=== PATIENT | male | born 1965 | race Two or more races ===

== ENCOUNTER 2018-11-08 09:29 | Day surgery (SDC) | payer OTHER ==
[~2018-11-08] VITALS: Ht 165.1 cm; Wt 69.4 kg
[2018-11-08] VITALS (10 sets, daily range): BP systolic 109–135; BP diastolic 69–84; PULSE 70–86; RESP 11–16; Ht 165.1 cm; Wt 69.4 kg
--- NOTE | 2018-11-08 06:31 | PREOPHP ---
DATE OF ADMISSION: 11/08/2018 HISTORY OF PRESENT ILLNESS: This 53-year-old patient is admitted for elective cataract surgery of th e left eye. The patient has had advanced loss of vision in both eyes for the past 1 to 2 years witho ut prior history of eye disease or injury. SYSTEMIC HISTORY: Positive for hypertension, GERD and allergies. CURRENT MEDICATIONS: Include: 1. Ferrous sulfate. 2. Vitamin D3. 3. Omeprazole. 4. Benazepril. 5. Sertraline. ALLERGIES: THERE ARE NO KNOWN ALLERGIES. PHYSICAL EXAMINATION: Visual acuity with correction is 20/200 in the right eye and finger counting v ision in the left eye. Slit lamp examination reveals advanced nuclear sclerotic creating a mature ca taract present in both eyes. Applanation tonometry is 18 mmHg in the right eye and 17 mmHg in the le ft eye. Examination of the retina is obscured by the advanced cataract. DIAGNOSIS: Mature cataract, both eyes. PLAN: Cataract extraction with lens implant, left eye. The risks and alternatives to the surgery sarkar ve been discussed with the patient as well as the increased risk related to the advanced nature of th e cataracts in both eyes as well as the potential for limitation of visual acuity due to other factor s other than the cataract due to the inability to visualize the retina. The patient understands all of these and agrees to proceed with surgery in hopes of improving visual acuity leading to greater ab ility to perform activities of daily living. Dictated By: ELIU HERNANDEZ/HUNTER Conf#: [id number] DID#: [id number]
[~2018-11-08 09:29] MED LIST: CYCLOPENTOLATE/PHENYLEPH 2 ML OPH OPER SCH; DICLOFENAC 0.1% 2.5 ML OPH OPER SCH; MOXIFLOXACIN 0.5% 3 ML OPH OPER SCH; SOD CHLORIDE 0.9% 1,000 ML IV SCH; TROPICAMIDE 1% 15 ML OPH OPER SCH
[2018-11-08] MEDS ORDERED: CEFAZOLIN 1 GM INJ ONE (09:39)
[2018-11-08] MEDS ORDERED: NA HYALURONATE/CHONDROITIN 0.5 ML SYG ONE (09:39)
[2018-11-08] MEDS ORDERED: DEXAMETHASONE 4 MG/ML 1 ML INJ ONE (09:39)
[2018-11-08] MEDS ORDERED: LIDOCAINE 4% (MPF) 5 ML INJ ONE (09:39)
[2018-11-08] MEDS ORDERED: CARBACHOL 0.01% 1.5 ML OPH INJ ONE (09:39)
[2018-11-08] MEDS ORDERED: TETRACAINE 0.5% 4 ML OPH ONE (09:39)
--- NOTE | 2018-11-08 09:46 | PREAC ---
Date/Time of Note Date/Time of Note DATE: 11/08/18 TIME: 09:44 Anesthesia Eval and Record Evaluation Time Pre-Procedure Interview DATE: 11/08/18 TIME: 09:44 Age 53 Sex male NPO: 8 hrs Preoperative diagnosis left eye cataract Planned procedure left eye CEIOL Past Medical History Past Medical History: Includes Cardio: HTN (per h&p, no rx meds for HTN) Hepatic: Alcohol abuse (last drank 3 days ago per patient report ), Other (elevated LFTs (alcoholism?)) Psych: Depression, Anxiety Surgery & Anesthesia Issues No known issue Meds Anticoagulation: No Beta Fredi within 24 hr: No Reason Beta Fredi not given: Pt. not on B-Fredi Current Medications Diclofenac Sodium (Voltaren 0.1%) 1 drop Q5 MIN X 3 OPER ; Start 11/08/18 at 08:30; Stop 11/08/18 at 16:00 Tropicamide (Mydriacyl 1%) 1 drop Q5 MIN X3 OPER ; Start 11/08/18 at 08:30; Stop 11/08/18 at 16:00 Moxifloxacin HCl (Vigamox) 1 drop Q5 MIN X 3 OPER ; Start 11/08/18 at 08:30; Stop 11/08/18 at 16:00 Cyclopentolate/ Phenylephrine (Cyclomydril Oph 2 ml) 1 drop Q5 MIN X 3 OPER ; Start 11/08/18 at 08:30; Stop 11/08/18 at 16:00 Sodium Chloride 1,000 ml @ 25 mls/hr Q24H IV ; Start 11/08/18 at 08:30; Stop 11/08/18 at 16:00 Meds reviewed: Yes Allergies Coded Allergies: No Known Allergies (Unverified Allergy, Unknown, 11/07/18) Allergies Reviewed: Yes Labs/Studies Labs Reviewed: Reviewed by anesthesiologist test: N/A Studies: ECG (BBB ) Pre-procedure Exam Airway: Adequate mouth opening, Adequate thyromental dist Mallampati: Mallampati II Teeth: Abnormal (poor dentition, missing several teeth ) Lung: Normal Heart: Normal ASA Physical Status ASA physical status: 2 Emergency: None Planned Anesthetic General/MAC: MAC Planned Pain Management Parenteral pain med, Local by surgeon Pre-operative Attestations Prior to commencing anesthesia and surgery, the patient was re-evaluated, there was verification of: *The patient's identity *The results of appropriate recent lab work and preoperative vital signs *The above evaluation not changing prior to induction *Anesthetic plan, risk benefits, alternative and complications discussed with patient/family; questions answered; patient/family understands, accepts and wishes to proceed. JEROD CATALAN Nov 08, 2018 09:46
[2018-11-08] MEDS ORDERED: PROPOFOL 20 ML ONE (10:05)
[2018-11-08] MEDS ORDERED: FENTAnyl 50 MCG/ML VIAL ONE (10:05)
[2018-11-08] MEDS ORDERED: MIDAZOLAM 1 MG/ML 2 ML INJ ONE (10:05)
[2018-11-08] MEDS ORDERED: FER325 ORAL (10:08)
[2018-11-08] MEDS ORDERED: CALC1TAB98 ORAL (10:08)
[2018-11-08] MEDS ORDERED: OXYCODONE/ACETAMINOPHEN (5/325) TAB PO PRN ×2 (10:30)
[2018-11-08] MEDS ORDERED: FENTAnyl 50 MCG/ML VIAL IV PRN ×3 (10:30)
[2018-11-08] MEDS ORDERED: ONDANSETRON 4 MG INJ IV PRN (10:30)
--- NOTE | 2018-11-08 11:57 | SIPON ---
Date/Time of Note Date/Time of Note DATE: 11/08/18 TIME: 11:56 Operative Report Preoperative Diagnosis mature cataract os Postoperative Diagnosis same Operation/Procedure Performed cataract extraction with lens implant os Surgeon eliu orozco social media assistant none Anesthesia: MAC Estimated blood loss: none Transfusion Required none Specimen none Grafts/Implants posterior chamber lens implant Complications none ELIU OROZCO MD Nov 08, 2018 11:57
--- NOTE | 2018-11-08 13:08 | PAC ---
Date/Time of Note Date/Time of Note DATE: 11/08/18 TIME: 13:08 Post-Anesthesia Notes Post-Anesthesia Note Last documented vital signs Vital Signs Date Temp Pulse Resp B/P (MAP) Pulse Ox O2 O2 Flow FiO2 Time Delivery Rate 11/08/18 72 11 109/75 92 Room Air 11:43 (86) 11/08/18 98.1 11:36 Activity: WNL Respiratory function: WNL Cardiovascular function: WNL Mental status: Baseline Pain reasonably controlled: Yes Hydration appropriate: Yes Nausea/Vomiting absent: Yes JEROD CATALAN Nov 08, 2018 13:08
--- NOTE | 2018-11-08 13:32 | OPR ---
DATE OF OPERATION: 11/08/2018 PREOPERATIVE DIAGNOSIS: Mature cataract, left eye. POSTOPERATIVE DIAGNOSIS: Mature cataract, left eye. OPERATION PERFORMED: Cataract extraction with lens implant, left eye. SURGEON: Eliu Simmons MD ANESTHESIA: Satnam Jonas CRNA. OPERATION: Phacoemulsification with posterior chamber intraocular lens implant, left eye. PROCEDURE: The patient was brought to the operating room and placed on the table with an IV in place and the patient attached to an delicatessen department manager. Oxygen was given via face mask. After some intravenous sedation was administered, local anesthesia was given using Xylocaine 2% with epinephrine, mixed with Marcaine 0.5%. This was given in a lid block and retrobulbar injection. The p atient was then prepped and draped in the usual sterile manner. A wire lid speculum was inserted between the lids of the left eye. A Superblade was used to enter the anterior chamber at the corneoscleral limbus at the 10:30 o'clock position. A separate incision was made using a 3.0-mm keratome which entered the corneoscleral junction at the 12 o'clock position. Thr ough this 3-mm opening, an irrigating cystotome was introduced into the anterior chamber. The chamber was filled with Viscoat and an anterior capsulotomy was performed. Balanced salt solution was then u sed for hydrodissection of the lens. A phacoemulsification handpiece was then brought into the field and introduced into the anterior chamber. The lens nucleus was emulsified using a deep groove and cr acking the nucleus into quadrants. Following this, each quadrant was aspirated and emulsified at the pupillary margin. Due to the mature nature of the cataract, an excessive amount of time of ultrasound power was used, measuring just under 5 minutes of ultrasound. Please note that there was no lens cortical material and therefore we proceeded directly to insert th e posterior chamber intraocular lens, which was Bausch and Lomb Model LI61AO measuring 21.5 diopters. After this was completed, the irrigation/aspiration handpiece was brought to the field, introduced in to the posterior chamber, and the lens cortical material was removed. When this was completed, additi onal Viscoat was injected into the anterior and posterior chambers. After the leading haptic was int roduced into the capsular bag and the lens optic was present in the center of the eye, the injector w as removed and the trailing haptic was grasped with non-toothed forceps and introduced into the capsu lar fold superiorly. A Sinskey hook was then used to rotate the intraocular lens so that the lips wer e oriented in the horizontal meridian. One 10-0 nylon suture was placed across the wound. Prior to tying, the irrigation/aspiration handpiece was reintroduced into the anterior chamber to rem ove the Viscoat. Miochol was instilled to constrict the pupil, and then the 10-0 nylon suture was tie d. The ends were cut short and then the knot was buried. Then, 0.5 mL of dexamethasone and 0.5 mL of Ancef were injected into the sub-Tenon space in the infer ior fornix. Ciloxan drops were then placed on the surface of the eye. The speculum was removed and a patch was applied. The patient then left the operating room in satisfactory condition. Dictated By: ELIU HERNANDEZ/HUNTER Conf#: [id number] DID#: [id number]
== END 2018-11-08 12:35 | disposition home or self-care (01) ==
LOC: SDS 09:29
PROVIDERS: ATTEND Ophthalmology
DX: H26.8 Other specified cataract (principal); I10 Essential (primary) hypertension
CPT/HCPCS: 66984; J0690; J1100; J2250; J3010; V2632; Z7512; Z7610

== ENCOUNTER 2018-12-27 06:41 | Day surgery (SDC) | payer OTHER ==
--- NOTE | 2018-12-23 08:50 | PREOPHP ---
DATE OF ADMISSION: 12/27/2018 HISTORY OF PRESENT ILLNESS: This 53-year-old gentleman is admitted for elective cataract surgery of the right eye. The patient has previously had decreased vision in both eyes for the past 1 to 2 year s. He has undergone cataract surgery on the left eye 6 weeks ago with excellent visual recovery. Th e patient's systemic history is positive for hypertension, gastroesophageal reflux disease and allerg ies. CURRENT MEDICATIONS: 1. Ferrous sulfate. 2. Vitamin D3. 3. Omeprazole. 4. Benazepril. 5. Sertraline. ALLERGIES: THERE ARE NO KNOWN ALLERGIES. PHYSICAL EXAMINATION: The visual acuity with best correction is 20/200 in the right eye and 20/50 in the left eye. Slit lamp examination reveals an advanced nuclear sclerotic cataract in the right eye . The left eye has a posterior chamber intraocular lens in appropriate position. Applanation tonome try is 17 mmHg in the right eye and 12 mmHg in the left eye. Examination of the retina appears withi n normal limits with no evidence of any macular changes. DIAGNOSIS: Advanced nuclear sclerotic cataract, right eye. PLAN: Cataract extraction with lens implant, right eye. The risks and alternatives to the surgery a s well as the potential benefits of improved ability to function with improved visual acuity have bee n discussed with the patient and he has agreed to proceed with surgery. Dictated By: ELIU OROZCO MD BM/NTS Conf#: [id number] DID#: [id number] CC: ELIU OROZCO MD;*EndCC*
[~2018-12-27] VITALS: Ht 160 cm; Wt 69.4 kg
[2018-12-27] VITALS (8 sets, daily range): BP systolic 123–150; BP diastolic 80–97; PULSE 66–102; RESP 10–24; Ht 160 cm; Wt 69.4 kg
[~2018-12-27 06:41] MED LIST changes: +CALC1TAB98 ORAL; -CYCLOPENTOLATE/PHENYLEPH 2 ML OPH OPER SCH; -DICLOFENAC 0.1% 2.5 ML OPH OPER SCH; +FER325 ORAL; -MOXIFLOXACIN 0.5% 3 ML OPH OPER SCH; -SOD CHLORIDE 0.9% 1,000 ML IV SCH; -TROPICAMIDE 1% 15 ML OPH OPER SCH
[2018-12-27] MEDS ORDERED: CYCLOPENTOLATE/PHENYLEPH 2 ML OPH OPER SCH (07:00)
[2018-12-27] MEDS ORDERED: SOD CHLORIDE 0.9% 1,000 ML IV SCH (07:00)
[2018-12-27] MEDS ORDERED: TROPICAMIDE 1% 15 ML OPH OPER SCH (07:00)
[2018-12-27] MEDS ORDERED: DICLOFENAC 0.1% 2.5 ML OPH OPER SCH (07:00)
[2018-12-27] MEDS ORDERED: MOXIFLOXACIN 0.5% 3 ML OPH OPER SCH (07:00)
[2018-12-27] MEDS ORDERED: LIDOCAINE 2% (SDV) 5 ML INJ ONE (09:00)
[2018-12-27] MEDS ORDERED: PROPOFOL 200 MG INJ ONE (09:00)
[2018-12-27] MEDS ORDERED: LIDOCAINE 4% (MPF) 5 ML INJ ONE (09:16)
[2018-12-27] MEDS ORDERED: CEFAZOLIN 1 GM INJ ONE (09:16)
[2018-12-27] MEDS ORDERED: NA HYALURONATE/CHONDROITIN 0.5 ML SYG ONE (09:16)
[2018-12-27] MEDS ORDERED: DEXAMETHASONE 4 MG/ML 1 ML INJ ONE (09:16)
[2018-12-27] MEDS ORDERED: CARBACHOL 0.01% 1.5 ML OPH INJ ONE (09:16)
--- NOTE | 2018-12-27 09:24 | PREAC ---
Date/Time of Note Date/Time of Note DATE: 12/27/18 TIME: 09:23 Anesthesia Eval and Record Evaluation Time Pre-Procedure Interview DATE: 12/27/18 TIME: 09:23 Age 53 Sex male NPO: 8 hrs Preoperative diagnosis R eye cataract Planned procedure R eye cataract extraction Past Medical History Past Medical History: Includes Heme: Anemia Surgery & Anesthesia Issues No known issue Meds Anticoagulation: No Beta Fredi within 24 hr: No Reason Beta Fredi not given: Pt. not on B-Fredi Reported Medications Calcium Carbonate/Vitamin D3 (Calcium 600 + Vit D 200 Tablet) 1 Each Tablet, 1 TAB ORAL BID 11/08/18 Ferrous Sulfate* (Ferrous Sulfate*) 325 Mg Tabec, 1 TAB ORAL DAILY 11/08/18 Current Medications Diclofenac Sodium (Voltaren 0.1%) 1 drop Q5 MIN X 3 OPER Last administered on 12/27/18at 07:38; Admin Dose 1 DROP; Start 12/27/18 at 07:00 Tropicamide (Mydriacyl 1%) 1 drop Q5 MIN X3 OPER Last administered on 12/27/18at 07:38; Admin Dose 1 DROP; Start 12/27/18 at 07:00 Moxifloxacin HCl (Vigamox) 1 drop Q5 MIN X 3 OPER Last administered on 12/27/18at 07:39; Admin Dose 1 DROP; Start 12/27/18 at 07:00 Cyclopentolate/ Phenylephrine (Cyclomydril Oph 2 ml) 1 drop Q5 MIN X 3 OPER Last administered on 12/27/18at 07:51; Admin Dose 1 DROP; Start 12/27/18 at 07:00 Sodium Chloride 1,000 ml @ 25 mls/hr Q24H IV ; Start 12/27/18 at 07:00 Meds reviewed: Yes Allergies Coded Allergies: No Known Allergies (Unverified Allergy, Unknown, 12/27/18) Allergies Reviewed: Yes Labs/Studies Labs Reviewed: Reviewed by anesthesiologist Result Diagram: 12/27/18740 Laboratory Tests 12/27/18 07:41 test: N/A Pre-procedure Exam Last vitals Vital Signs Date Temp Pulse Resp B/P (MAP) Pulse Ox O2 O2 Flow FiO2 Time Delivery Rate 12/27/18 97.6 66 16 138/85 97 Room Air 08:03 (102) Airway: Adequate mouth opening, Adequate thyromental dist Mallampati: Mallampati II Teeth: Normal Lung: Normal Heart: Normal ASA Physical Status ASA physical status: 2 Emergency: None Planned Anesthetic General/MAC: Mask, MAC Pre-operative Attestations Prior to commencing anesthesia and surgery, the patient was re-evaluated, there was verification of: *The patient's identity *The results of appropriate recent lab work and preoperative vital signs *The above evaluation not changing prior to induction *Anesthetic plan, risk benefits, alternative and complications discussed with patient/family; questions answered; patient/family understands, accepts and wishes to proceed. LELA CAVAZOS December 27, 2018 09:24
[2018-12-27] MEDS ORDERED: ONDANSETRON 4 MG INJ IV PRN (09:30)
[2018-12-27] MEDS ORDERED: ALBUTEROL 0.083% (NEB) 2.5 MG/3 ML AMP HHN PRN (09:30)
[2018-12-27] MEDS ORDERED: DIPHENHYDRAMINE 50 MG INJ IV PRN (09:30)
[2018-12-27] MEDS ORDERED: OXYCODONE/ACETAMINOPHEN (5/325) TAB PO PRN (09:30)
[2018-12-27] MEDS ORDERED: MEPERIDINE 25 MG INJ IV PRN (09:30)
[2018-12-27] MEDS ORDERED: HYDROmorphONE 1 MG/5 ML IV SYRINGE IV PRN ×2 (09:30)
[2018-12-27] MEDS ORDERED: METOCLOPRAMIDE 10 MG INJ IV PRN (09:30)
[2018-12-27] MEDS ORDERED: FENTAnyl 50 MCG/ML VIAL IV PRN ×2 (09:30)
--- NOTE | 2018-12-27 10:27 | SIPON ---
Date/Time of Note Date/Time of Note DATE: 12/27/18 TIME: 10:26 Operative Report Preoperative Diagnosis mature cataract od Postoperative Diagnosis same Operation/Procedure Performed cataract extraction with lens implant od Surgeon alesia orozco kitchen assistant none Anesthesia: MAC Estimated blood loss: none Transfusion Required none Specimen none Grafts/Implants posterior chamber lens implant Complications none ELIU OROZCO MD December 27, 2018 10:27
--- NOTE | 2018-12-27 14:51 | OPR ---
DATE OF OPERATION: 12/27/2018 PREOPERATIVE DIAGNOSIS: Mature cataract, right eye. POSTOPERATIVE DIAGNOSIS: Mature cataract, right eye. OPERATION PERFORMED: Cataract extraction with lens implant, right eye. SURGEON: Eliu Simmons MD ANESTHESIA: Local standby. PROCEDURE: The patient was brought to the operating room and placed on the table with an IV in place and the patient attached to an clinic cma. Oxygen was given via face mask. After some intravenous sedation was administered, local anesthesia was given using Xylocaine 2% with epinephrine, mixed with Marcaine 0.5%. This was given in a lid block and retrobulbar injection. The p atient was then prepped and draped in the usual sterile manner. A wire lid speculum was inserted between the lids of the right eye. A Superblade was used to enter th e anterior chamber at the corneoscleral limbus at the 10:30 o'clock position. A separate incision was made using a 3.0-mm keratome which entered the corneoscleral junction at the 12 o'clock position. Th rough this 3-mm opening, an irrigating cystotome was introduced into the anterior chamber. The chambe r was filled with Viscoat and an anterior capsulotomy was performed. Balanced salt solution was then used for hydrodissection of the lens. A phacoemulsification handpiece was then brought into the fiel d and introduced into the anterior chamber. The lens nucleus was emulsified using a deep groove and cracking the nucleus into quadrants. Following this, each quadrant was aspirated and emulsified at th e pupillary margin. The nucleus was found to be extremely hard and therefore, a higher setting of ul trasound was used as well as extended period of time which measured almost 4 minutes of ultrasound ti me prior to the nucleus being fully emulsified. At the end of the phacoemulsification, the lens nucl eus, it was noted that there was a big round opening in the posterior capsule, and therefore, with gr eat care of the lens cortical, material was aspirated. After this was completed, the irrigation/aspiration handpiece was brought to the field, introduced in to the posterior chamber, and the lens cortical material was removed. When this was completed, additi onal Viscoat was injected into the anterior and posterior chambers. The 3-mm opening had its internal lips enlarged, and then the posterior chamber intraocular lens maggie uring 21.5 diopters posterior chamber intralocular lens ([employer] Model LI61AO) wa s then injected using the lens injector system. It was noted that the lens haptics had been placed a nterior to the anterior lens capsule and remained centered despite external pressure on the eye and n o movement of the lens implant was noted. After the leading haptic was introduced into the capsular bag and the lens optic was present in the center of the eye, the injector was removed and the trailin g haptic was grasped with non-toothed forceps and introduced into the capsular fold superiorly. A Sin skey hook was then used to rotate the intraocular lens so that the lips were oriented in the horizont al meridian. One 10-0 nylon suture was placed across the wound. Prior to tying, the irrigation/aspiration handpiece was reintroduced into the anterior chamber to rem ove the Viscoat. Miochol was instilled to constrict the pupil, and then the 10-0 nylon suture was tie d. The ends were cut short and then the knot was buried. Then, 0.5 mL of dexamethasone and 0.5 mL of Ancef were injected into the sub-Tenon space in the infer ior fornix. Ciloxan drops were then placed on the surface of the eye. The speculum was removed and a patch was applied. The patient then left the operating room in satisfactory condition. Dictated By: ELIU HERNANDEZ/HUNTER Conf#: [id number] DID#: [id number]
--- NOTE | 2018-12-28 06:45 | PAC ---
Date/Time of Note Date/Time of Note DATE: 12/28/18 TIME: 06:45 Post-Anesthesia Notes Post-Anesthesia Note Last documented vital signs Vital Signs Date Temp Pulse Resp B/P (MAP) Pulse Ox O2 O2 Flow FiO2 Time Delivery Rate 12/27/18 97.5 88 16 140/82 94 Room Air 11:05 (101) Activity: WNL Respiratory function: WNL Cardiovascular function: WNL Mental status: Baseline Pain reasonably controlled: Yes Hydration appropriate: Yes Nausea/Vomiting absent: Yes LELA CAVAZOS December 28, 2018 06:45
== END 2018-12-27 12:13 | disposition home or self-care (01) ==
LOC: SDS 06:41
PROVIDERS: ATTEND Ophthalmology
DX: H25.11 Age-related nuclear cataract, right eye (principal)
CPT/HCPCS: 66984; 85025; 85610; 85730; J0690; J1100; Z7610; V2632